=== PATIENT | female | born 2005 | race Caucasian/White ===

== ENCOUNTER 2025-06-16 19:20 | Inpatient (IN) ==
[2025-06-16] MEDS ORDERED: IOPAMIDOL 100 ML BOTTLE IV ONE (19:21)
[2025-06-16] MEDS: ACETAMINOPHEN 650 MG/65 ML BAG IV PRN (20:05)
[2025-06-16] MEDS: 0.9 % SODIUM CHLORIDE 1,000 ML IV ONE (20:05)
[2025-06-16] MEDS: ONDANSETRON 4 MG/2 ML VIAL IV ONE (20:44)
[2025-06-16 20:52] LABS: Basophils # (Auto) 0.02 K/mcL (0.00-0.30); Basophils % (Auto) 0.1 % (0.0-2.0); Eosinophils # (Auto) 0.02 K/mcL (0.00-0.70); Eosinophils % (Auto) 0.1 % (0.0-7.0); Hematocrit 37.2 % (34.1-44.9); Hemoglobin 11.3 g/dL (11.2-15.7); Lymphocytes # (Auto) 0.74 K/mcL (1.50-4.80); Lymphocytes % (Auto) 2.4 % (15.5-49.0); Mean Corpuscular HGB Conc 30.4 g/dL (31.0-36.0); Monocytes # (Auto) 1.95 K/mcL (0.10-0.90); Monocytes % (Auto) 6.2 % (1.0-12.0); Neutrophils % (Auto) 90.4 % (38.0-78.0); Platelet Count 285 K/mcL (140-440); RBC 5.15 M/mcL (3.59-5.38); WBC 31.4 K/mcL (4.5-11.0)
[2025-06-16 21:02] LABS: ALT/SGPT 10 U/L (<40); AST/SGOT 20 U/L (<32); Albumin 4.1 gm/dL (3.2-5.2); Albumin/Globulin Ratio 1.2 (1.0-2.3); Alkaline Phosphatase 118 U/L (39-117); Anion Gap 18.0 (8.0-16.0); Bilirubin,Total 0.7 mg/dL (0.1-1.0); Blood Urea Nitrogen 9 mg/dL (6-20); Calcium 10.1 mg/dL (8.6-10.4); Carbon Dioxide 18 mmol/L (22-30); Chloride 97 mmol/L (96-108); Globulin 3.4 gm/dL (2.2-3.7); Glucose 96 mg/dL (70-105); Potassium 3.7 mmol/L (3.3-5.1); Sodium 133 mmol/L (133-145)
[2025-06-16] MEDS: PIPERACILLIN SODIUM/TAZOBACTAM 4.5 GM in DEXTROSE 5% IN WATER 50 ML IV ONE (21:33)
[2025-06-16 21:41] LABS: Bacteria,Urine Few /hpf (0); Bilirubin,Urine Negative (Negative); Color,Urine Yellow; Glucose,Urine (UA) Negative (Negative); Ketones,Urine >=160 mg/dL (Negative); Leukocyte Esterase,Urine Negative /uL (Negative); Mucus,Urine Mod /hpf; PH,Urine 6.0 (5.0-9.0); Protein,Urine >=300 mg/dL (Negative); Specific Gravity,Urine >= 1.030 (1.000-1.035); Urobilinogen,Urine Normal
[2025-06-16] MEDS ORDERED: NALOXONE HCL 0.4 MG/ML VIAL IV PRN (23:49)
[2025-06-17] MEDS: 0.9 % SODIUM CHLORIDE 1,000 ML IV SCH ×2 (00:11→14:06)
[2025-06-17] MEDS: 0.9 % SODIUM CHLORIDE 1,000 ML IV ONE (00:20)
[2025-06-17] MEDS: PIPERACILLIN SODIUM/TAZOBACTAM 4.5 GM in DEXTROSE 5% IN WATER 50 ML IV SCH (01:09)
[2025-06-17] MEDS: LACTATED RINGERS 1,000 ML IV SCH ×2 (02:11→16:08)
[2025-06-17] MEDS: PIPERACILLIN SODIUM/TAZOBACTAM 4.5 GM in DEXTROSE 5% IN WATER 100 ML IV SCH (02:13)
[2025-06-17] MEDS: ONDANSETRON 4 MG/2 ML VIAL IV PRN ×3 (05:13→18:09)
[2025-06-17 06:42] LABS: ALT/SGPT 10 U/L (<40); AST/SGOT 16 U/L (<32); Albumin 3.3 gm/dL (3.2-5.2); Albumin/Globulin Ratio 1.2 (1.0-2.3); Alkaline Phosphatase 136 U/L (39-117); Anion Gap 14.0 (8.0-16.0); Bilirubin,Direct 0.5 mg/dL (<0.3); Bilirubin,Total 0.8 mg/dL (0.1-1.0); Blood Urea Nitrogen 5 mg/dL (6-20); Calcium 8.7 mg/dL (8.6-10.4); Carbon Dioxide 18 mmol/L (22-30); Chloride 101 mmol/L (96-108); Globulin 2.8 gm/dL (2.2-3.7); Glucose 95 mg/dL (70-105); Phosphorous 1.5 mg/dL (2.5-4.5); Potassium 3.4 mmol/L (3.3-5.1); Sodium 133 mmol/L (133-145); Triglycerides 66 mg/dL (<150); Uric Acid 3.7 mg/dL (2.5-8.0)
[2025-06-17 06:47] LABS: Basophils # (Auto) 0.02 K/mcL (0.00-0.30); Basophils % (Auto) 0.1 % (0.0-2.0); Eosinophils # (Auto) 0.01 K/mcL (0.00-0.70); Eosinophils % (Auto) 0.1 % (0.0-7.0); Hematocrit 31.0 % (34.1-44.9); Hemoglobin 9.5 g/dL (11.2-15.7); Lymphocytes # (Auto) 0.70 K/mcL (1.50-4.80); Lymphocytes % (Auto) 3.7 % (15.5-49.0); Mean Corpuscular HGB Conc 30.6 g/dL (31.0-36.0); Monocytes # (Auto) 1.33 K/mcL (0.10-0.90); Monocytes % (Auto) 7.1 % (1.0-12.0); Neutrophils % (Auto) 88.0 % (38.0-78.0); Platelet Count 241 K/mcL (140-440); RBC 4.27 M/mcL (3.59-5.38); WBC 18.9 K/mcL (4.5-11.0)
[2025-06-17] MEDS ORDERED: PROPOFOL 200 MG/20 ML VIAL IV ONE (10:13)
[2025-06-17] MEDS ORDERED: DEXAMETHASONE 10 MG/ML VIAL ONE (10:13)
[2025-06-17] MEDS ORDERED: ONDANSETRON 4 MG/2 ML VIAL ONE (10:13)
[2025-06-17] MEDS ORDERED: fentaNYL 100 MCG/2 ML VIAL ONE ×2 (10:13→13:05)
[2025-06-17] MEDS ORDERED: ROCURONIUM 10 MG/ML ML IV ONE (10:13)
[2025-06-17] MEDS ORDERED: LIDOCAINE 2% PF 5 ML VIAL ONE (10:13)
[2025-06-17] MEDS ORDERED: PHENYLephrine 1 MG/10 ML SYRINGE (ANEST) ONE (12:08)
[2025-06-17] MEDS ORDERED: LACTATED RINGERS 250 ML IV PRN (12:54)
[2025-06-17] MEDS ORDERED: NALOXONE HCL 0.4 MG/ML VIAL IV PRN (12:54)
[2025-06-17] MEDS ORDERED: IPRATROPIUM/ALBUTEROL 3 ML AMPUL.NEB NEB PRN (12:54)
[2025-06-17] MEDS ORDERED: MEPERIDINE 25 MG/ML VIAL IV PRN (12:54)
[2025-06-17] MEDS ORDERED: METHOCARBAMOL 1,000 MG/10 ML VIAL IV PRN (12:54)
[2025-06-17] MEDS ORDERED: diphenhydrAMINE 50 MG/ML VIAL IV PRN (12:54)
[2025-06-17] MEDS ORDERED: fentaNYL 100 MCG/2 ML VIAL IV PRN (12:54)
[2025-06-17] MEDS ORDERED: SUGAMMADEX SODIUM 200 MG/2 ML VIAL IV ONE (12:58)
[2025-06-17] MEDS: LIDOCAINE W/EPI 1% 20 ML VIAL IJ ONE (13:19)
[2025-06-17] MEDS: ACETAMINOPHEN 1,000 MG/100 ML BAG IV ONE (13:23)
[2025-06-17] MEDS: 0.9 % SODIUM CHLORIDE 10 ML SYRINGE IV SCH (15:01)
[2025-06-17] MEDS: KETOROLAC 30 MG/ML VIAL IV SCH (17:23)
[2025-06-17] MEDS ORDERED: SCOPOLAMINE 1 PATCH PATCH TOPICAL PRN (19:57)
[2025-06-17] MEDS: SENNOSIDES 1 TABLET PO SCH (22:00)
[2025-06-17] MEDS: DOCUSATE SODIUM 100 MG CAPSULE PO SCH (23:00)
[2025-06-18] MEDS: METOCLOPRAMIDE 10 MG/2 ML VIAL IV PRN (00:36)
[2025-06-18 06:29] LABS: Hematocrit 29.4 % (34.1-44.9); Hemoglobin 9.0 g/dL (11.2-15.7); Mean Corpuscular HGB Conc 30.6 g/dL (31.0-36.0); Platelet Count 243 K/mcL (140-440); RBC 4.06 M/mcL (3.59-5.38); WBC 23.1 K/mcL (4.5-11.0)
[2025-06-18 07:28] LABS: ALT/SGPT 9 U/L (<40); AST/SGOT 18 U/L (<32); Albumin 3.1 gm/dL (3.2-5.2); Albumin/Globulin Ratio 1.0 (1.0-2.3); Alkaline Phosphatase 150 U/L (39-117); Anion Gap 12.0 (8.0-16.0); Bilirubin,Total 0.3 mg/dL (0.1-1.0); Blood Urea Nitrogen 8 mg/dL (6-20); Calcium 8.8 mg/dL (8.6-10.4); Carbon Dioxide 18 mmol/L (22-30); Chloride 107 mmol/L (96-108); Globulin 3.0 gm/dL (2.2-3.7); Glucose 111 mg/dL (70-105); Potassium 3.8 mmol/L (3.3-5.1); Sodium 137 mmol/L (133-145)
[2025-06-18] MEDS: ACETAMINOPHEN 1,000 MG/100 ML BAG IV PRN (07:46)
[2025-06-18] MEDS: ENOXAPARIN 40 MG/0.4 ML SYRINGE SQ SCH (09:03)
[2025-06-18 09:13] LABS: Burr Cells 2+ (None Seen); Poikilocytosis 1+ (None Seen); RBC Morphology ABNORMAL (Normal)
[2025-06-18] MEDS: SENNOSIDES 1 TABLET PO SCH (10:36)
[2025-06-19 06:11] LABS: Basophils # (Auto) 0.01 K/mcL (0.00-0.30); Basophils % (Auto) 0.1 % (0.0-2.0); Eosinophils # (Auto) 0.03 K/mcL (0.00-0.70); Eosinophils % (Auto) 0.2 % (0.0-7.0); Hematocrit 27.1 % (34.1-44.9); Hemoglobin 8.4 g/dL (11.2-15.7); Lymphocytes # (Auto) 1.30 K/mcL (1.50-4.80); Lymphocytes % (Auto) 8.4 % (15.5-49.0); Mean Corpuscular HGB Conc 31.0 g/dL (31.0-36.0); Monocytes # (Auto) 0.67 K/mcL (0.10-0.90); Monocytes % (Auto) 4.3 % (1.0-12.0); Neutrophils % (Auto) 86.4 % (38.0-78.0); Platelet Count 263 K/mcL (140-440); RBC 3.79 M/mcL (3.59-5.38); WBC 15.4 K/mcL (4.5-11.0)
[2025-06-19 06:32] LABS: ALT/SGPT 20 U/L (<40); AST/SGOT 32 U/L (<32); Albumin 3.0 gm/dL (3.2-5.2); Albumin/Globulin Ratio 1.2 (1.0-2.3); Alkaline Phosphatase 121 U/L (39-117); Anion Gap 10.0 (8.0-16.0); Bilirubin,Total < 0.2 mg/dL (0.1-1.0); Blood Urea Nitrogen 13 mg/dL (6-20); Calcium 8.7 mg/dL (8.6-10.4); Carbon Dioxide 19 mmol/L (22-30); Chloride 108 mmol/L (96-108); Globulin 2.6 gm/dL (2.2-3.7); Glucose 92 mg/dL (70-105); Potassium 3.4 mmol/L (3.3-5.1); Sodium 137 mmol/L (133-145)
[2025-06-19] MEDS: LACTOBACILLUS 1 CAPSULE PO SCH (09:27)
== END 2025-06-19 12:15 | disposition home or self-care (01) | DRG 854 ==
LOC: ED 19:20 → MEDSUR 06-17 00:41
PROVIDERS: ADMIT Surgery; ATTEND Surgery
PROC: LAPAPPY (ICD-10-PCS; 2025-06-17 11:51)